=== PATIENT | female | born 1985 | race Caucasian/White ===

== ENCOUNTER → 2016-10-29 | Outpatient (CLI) | payer OTHER | LOC: FIMAGING 19:39 | PROVIDERS: ATTEND Orthopaedic Surgery Foot and Ankle Surgery | DX: M25.562 Pain in left knee (principal); M76.32 Iliotibial band syndrome, left leg; M76.892 Other specified enthesopathies of left lower limb, excluding foot ==

== ENCOUNTER → 2018-02-19 | Outpatient (CLI) | payer OTHER | LOC: FIMAGING 11:35 | PROVIDERS: ATTEND Advanced Practice Midwife | DX: Z34.03 Encounter for supervision of normal first pregnancy, third trimester (principal); Z3A.34 34 weeks gestation of pregnancy ==

== ENCOUNTER 2018-04-01 04:48 | Inpatient (IN) | payer OTHER ==
--- NOTE | 2018-04-01 05:08 | PDGENHP ---
History and Physical History and Physical: Care: [facility] HPI: Patient is a 32yo with IUP@40-4 weeks that presents to L&D with complaints of contractions since 2099. She states they have been getting closer and stronger for the last hour. She reports leaking clear odorless fluid that started around 0400. She denies any VB. She reports +FM. EDC: 03/28/2018 which is based on Ultrasound at 9 weeks. Her is complicated by: S<D (US growth NL) Review of Systems: Constitutional: Denies any fever, chills, or fatigue HEENT: denies any visual changes, difficulty swallowing, hearing loss Cardiovascular: Denies any chest pain, palpitations, leg swelling Respiratory: denies any cough, wheezing, or shortness of breathe GI: Denies any nausea, vomiting, diarrhea, constipation, reports +contractions : denies any dysuria, urgency, frequency, vaginal bleeding Musculoskeletal: denies any muscle or bone pain Skin: denies any rashes Neuro: denies any headache, seizures, lightheadedness, dizziness, or loss of consciousness Psychiatric: denies any depression, anxiety, or SI/HI thoughts HISTORY: Previous OB history: G1 Past medical history: h/o hypercaliurea (kidney stones) Past surgical history: kidney stones removed, oral surgery Social: Denies any alcohol, tobacco, or drug use. - Idris Family history: Not relevant Medications: PNV Allergies (list reaction): NKDA LABS: Rh:A+ ABS: Neg Rubella: Immune HbsAg: NR HIV: NR VDRL: NR 1hr: 79 GC: Neg Chlamydia: Neg Pap: Normal GBS: negative BMI: (prepreg) 21 PHYSICAL EXAM: Constitutional: WN, A&Ox3 HEENT: normocephalic atraumatic, supple Skin: Warm, dry, intact Heart: RRR, no murmur Chest: CTA-B Abdomen: Soft, nontender, gravid SVE:4-5/90/-1 Extremities:no edema, negative homans sign Neuro: grossly normal Psych: normal affect assessment: FHT [id number]+accels, no decels, moderate variability Contractions: toco q 2-5 Assessment: 1) [id number] with IUP@ 40-3wks 2) acitve labor 3) GBS negative 4) Cat 1 FHR tracing Plan: 1) Admit to L&D 2) pain management PRN 3) anticipate Today's visit was approximately 30 min, of which >50% of visit 20min, was spent face to face with pt on direct counseling/coordination of care.
[2018-04-01] MEDS ORDERED: IBUPROFEN 600 MG TAB PO PRN (05:10)
[2018-04-01] MEDS ORDERED: OLIVE OIL 118 ML BTL MISC PRN (05:10)
[2018-04-01] MEDS ORDERED: fentaNYL 100 MCG/2 ML INJ IVP PRN (05:10)
[2018-04-01] MEDS ORDERED: LIDOCAINE 1% 300 MG/30 ML SDV SC PRN (05:10)
[2018-04-01] MEDS ORDERED: EPSOM SALT 454 GM TP PRN (05:10)
[2018-04-01] MEDS ORDERED: AMMONIA AROMATIC 1 EACH AMP IH PRN (05:10)
[2018-04-01] MEDS ORDERED: MISOPROSTOL 200 MCG TAB PO PRN (05:10)
[2018-04-01] MEDS ORDERED: TERBUTALINE SULFATE 1 MG/ML VIAL IV PRN (05:10)
[2018-04-01] MEDS ORDERED: LR 1,000 ML IV PRN (05:10)
[2018-04-01] MEDS ORDERED: OXYTOCIN/RINGERS LACTATE 1,000 ML IV PRN (05:10)
[2018-04-01] MEDS ORDERED: OLIVE OIL 118 ML BTL ONE (05:15)
[2018-04-01] MEDS ORDERED: AMMONIA AROMATIC 1 EACH AMP IH ONE (05:15)
[2018-04-01] MEDS ORDERED: LIDOCAINE 1% 300 MG/30 ML SDV ONE (05:15)
[2018-04-01] MEDS ORDERED: TERBUTALINE SULFATE 1 MG/ML VIAL ONE (05:16)
[2018-04-01] MEDS ORDERED: MISOPROSTOL 200 MCG TAB ONE (05:16)
[2018-04-01] MEDS ORDERED: OXYTOCIN 10 UNIT/ML VIAL ONE (05:16)
[2018-04-01 05:51] LABS: PLATELET COUNT 276 10^3/uL (150-400)
[2018-04-01] MEDS ORDERED: ONDANSETRON 4 MG/2 ML VIAL IVP PRN ×2 (06:59→07:45)
[2018-04-01] MEDS ORDERED: fentaNYL 2MCG/ML/BUP 0.1% RTU 100 ML BAG EP ONE (07:10)
[2018-04-01] MEDS ORDERED: PHENYLEPHRINE HCL 100 MCG/ML SYR ONE (07:11)
[2018-04-01] MEDS ORDERED: BUPIVACAINE 0.25% 10 ML SDV ONE (07:11)
--- NOTE | 2018-04-01 07:15 | PREANESOB ---
Obstetric Pre-Anesthesia Info - General Info Proposed Procedure: JAMAL : 1 Para: 0 DARRELL: 03/28/18 Gestational Age: 40 week(s) and 4 day(s) - Labor Status Cervical Dilation per last OB SVE: 5 Indications for Labor Analgesia: Pain Control Labor Epidural: Proposed Anesthesia Allergies/Adverse Reactions: Allergy/AdvReac Type Severity Reaction Status Date / Time No Known Allergies Allergy Unverified 12/19/09 13:28 Home Medications: Medication Instructions Recorded Chlorthaladone 12/19/09 Potassium Citrate 12/19/09 Visit Medications: Generic Name Dose Route Start Last Admin Trade Name Freq PRN Reason Stop Dose Admin Ammonia (Aromatic Spirit) 1 each 04/01/18 05:10 Ammonia Aromatic IH 04/11/18 05:09 ONCE PRN Fainting Fentanyl 50 mcg 04/01/18 05:10 04/01/18 05:24 Sublimaze IVP 04/11/18 05:09 50 mcg Q2HRS PRN Administration Pain, Severe Unable to Take PO Lactated Ringer's 1,000 mls @ 0 mls/hr 04/01/18 05:10 04/01/18 05:11 Lr IV 04/02/18 05:09 1,000 mls PRN PRN Administration SEE PROTOCOL CONDITIONS Protocol Per Protocol Oxytocin/Lactated Ringer's 1,000 mls @ 999 mls/hr 04/01/18 05:10 Pitocin 20 Units/Lr (Premix) IV PRN PRN Post bleeding Ibuprofen 600 mg 04/01/18 05:10 Motrin PO ONCE PRN post , pain Lidocaine HCl 300 mg 04/01/18 05:10 Lidocaine Hcl 1% SC 09/28/18 05:09 ONCE PRN episiotomy Magnesium Sulfate 454 gm 04/01/18 05:10 Epsom Salt TP 09/28/18 05:09 Q1H PRN perineal discomfort Misoprostol 800 - 1,000 mcg 04/01/18 05:10 Cytotec PO 09/28/18 05:09 ONCE PRN Vaginal Atony/Bleeding [place] Oil 118 ml 04/01/18 05:10 Sweet Oil MISC 09/28/18 05:09 ONCE PRN perineal massage Ondansetron HCl 4 mg 04/01/18 06:59 Zofran IVP 09/28/18 06:58 Q4HRS PRN Nausea/Vomiting, Can't Take PO Terbutaline Sulfate 0.25 mg 04/01/18 05:10 Brethine IV 09/28/18 05:09 ONCE PRN Tachysystole Discontinued Medications Generic Name Dose Route Start Last Admin Trade Name Justin PRN Reason Stop Dose Admin Ammonia (Aromatic Spirit) Confirm 04/01/18 05:15 Ammonia Aromatic Administered 04/01/18 05:16 Dose 1 each IH .STK-MED ONE Bupivacaine HCl Confirm 04/01/18 07:11 Sensorcaine 0.25% Sdv Administered 04/01/18 07:12 Dose 10 ml .ROUTE .STK-MED ONE Fentanyl/Bupivacaine HCl Confirm 04/01/18 07:10 Fentanyl/Bupivacaine/Ns 2 Mcg/Ml 0.1% (Premix Administered 04/01/18 07:11 Dose 100 ml EP .STK-MED ONE Lidocaine HCl Confirm 04/01/18 05:15 Lidocaine Hcl 1% Administered 04/01/18 05:16 Dose 300 mg .ROUTE .STK-MED ONE Misoprostol Confirm 04/01/18 05:16 Cytotec Administered 04/01/18 05:17 Dose 1,000 mcg .ROUTE .STK-MED ONE [place] Oil Confirm 04/01/18 05:15 Sweet Oil Administered 04/01/18 05:16 Dose 118 ml .ROUTE .STK-MED ONE Oxytocin Confirm 04/01/18 05:16 Pitocin Administered 04/01/18 05:17 Dose 40 unit .ROUTE .STK-MED ONE Phenylephrine HCl Confirm 04/01/18 07:11 Neosynephrine Administered 04/01/18 07:12 Dose 1,000 mcg .ROUTE .STK-MED ONE Terbutaline Sulfate Confirm 04/01/18 05:16 Brethine Administered 04/01/18 05:17 Dose 1 mg .ROUTE .STK-MED ONE - Anesthesia History Response to Local Anesthetics: Normal Anesthesia & Operative History: No Prior Problems Family Anesthesia History: Not Applicable - Social History Substance Use/Abuse: Denies - Vital Signs Height/Weight (Nursing): Height 170.18 cm Weight 70.307 kg - Focused Exam Neck exam: FROM Mallampati Score: Class 2 Mouth exam: normal dental/mouth exam Pulmonary: no respiratory distress Cardiovascular: regular rate and rhythym Labs: 04/01/18 05:11 Patient ABO/Rh A POSITIVE 04/01/18 05:11 - Plan Anesthetic Plan: JAMAL Consent Signed and on Chart: Yes Patient/Guardian Understands and Agrees to Plan: Yes
[2018-04-01] MEDS ORDERED: PHENYLEPHRINE HCL 100 MCG/ML SYR IVP PRN (07:45)
[2018-04-01] MEDS ORDERED: NALOXONE HCL 0.4 MG/ML INJ IVP PRN (07:45)
[2018-04-01] MEDS ORDERED: fentaNYL 2MCG/ML/BUP 0.1% RTU 100 ML EP SCH (08:00)
[2018-04-01] MEDS ORDERED: LR 500 ML IV SCH (08:00)
--- NOTE | 2018-04-01 09:33 | OBPROG ---
Labor Progress Note Assessment/Plan: Assessment: Plan: 04/01/18 09:31 Second stage labor Category 1 strip Plan: Labor down for now; recheck in 1 hour or if feeling pressure. Anticipate Subjective/Intrapartum Course: 04/01/18 09:29 Comfortable with epidural in place. Had been feeling pressure but no longer. Was able to sleep for a small amount of time. Objective: 04/01/18 05:11 Patient ABO/Rh A POSITIVE 04/01/18 05:11 - SVE Dilation (cm): 10 Effacement (%): 100 Station: +1 Membranes: SROM Amniotic Fluid Color: Clear Dilation Complete Date: 04/01/18 Dilation Complete Time: 09:20 - Contraction Pattern Assessment Current Contraction Pattern: Regular - FHR Assessment Valdes FHR (bpm): 120 (occasional variable; overeall category 1 strip) FHR Pattern Variability: Moderate FHR Category: 1 - Procedures Non-surgical Procedures: Other (Specify) (fan catheter placed) Oxytocin Orders Assessment - Pre-Induction/Augmentation Assessment Gestational Age: 40 week(s) and 4 day(s) ICD10 Worksheet Patient Problems: Problems Problem Status Onset Acute - ICD10 Problem Qualifiers (1) Qualifiers: Weeks of gestation: 40 weeks Qualified Code(s): Z3A.40 - 40 weeks gestation of
--- NOTE | 2018-04-01 11:48 | OBDEL ---
Info Type: Vaginal Presentation at Delivery: Vertex L&D Analgesia/Anesthesia Type: Epidural GBS+: No Intrapartum Medications: Generic Name Dose Route Start Last Admin Trade Name Freq PRN Reason Stop Dose Admin Fentanyl 50 mcg 04/01/18 05:10 04/01/18 05:24 Sublimaze IVP 04/11/18 05:09 50 mcg Q2HRS PRN Administration Pain, Severe Unable to Take PO Lactated Ringer's 1,000 mls @ 0 mls/hr 04/01/18 05:10 04/01/18 05:11 Lr IV 04/02/18 05:09 1,000 mls PRN PRN Administration SEE PROTOCOL CONDITIONS Protocol Per Protocol - Hospital Course Intrapartum: 04/01/18 09:29 Comfortable with epidural in place. Had been feeling pressure but no longer. Was able to sleep for a small amount of time. Indications for Delivery: Spontaneous Labor, SROM Vaginal Delivery - Delivery Provider Delivery Physician/CNM: Dennise Ayala - Labor and Delivery Onset of Contractions Date: 03/31/18 Onset of Contractions Time: 22:00 Onset of Contractions Type: Spontaneous Rupture of Membranes Date: 04/01/18 Rupture of Membranes Time: 04:00 Rupture of Membranes Type: Spontaneous Amniotic Fluid Color: Clear Dilation Complete Date: 04/01/18 Dilation Complete Time: 09:20 Placenta Delivery Date: 04/01/18 Placenta Delivery Time: 11:13 Total Hours of Labor: 13 Non-surgical Procedures: Other (Specify) (fan catheter placed) Laceration: 2nd Degree (Perineal laceration, 2nd degree repaired in the usual fashion.) Repair: 3-0 Vaginal Sponge Count Correct: Yes Vaginal Needle Count Correct: Yes Vaginal Sweep Performed: Yes Delivery Events: Nuchal Cord Delivery Comment: Nanci began spontaneously pushing. Prolonged decel to the 90's. Changed position to the right side then the left side without recovery. Moved to hands and knees, with immediate recovery back to baseline and no further decels was noted other than early with push. Delivered in hands and knees position. Father helped with . Baby delivered OA to TOMMY position. Immediately brought baby through the patients legs to chest. Assisted mom to low semi fowlers position. - Medications Labor Augmentation/Induction Methods Used: None [place] Data DARRELL: 03/28/18 Gestational Age: 40 week(s) and 4 day(s) ICD10 Worksheet Patient Problems: Problems Problem Status Onset Acute - ICD10 Problem Qualifiers (1) Qualifiers: Weeks of gestation: 40 weeks Qualified Code(s): Z3A.40 - 40 weeks gestation of
[2018-04-01] MEDS ORDERED: HYDROCORTISONE 0.5% CREAM TP PRN (11:54)
[2018-04-01] MEDS ORDERED: SIMETHICONE 80 MG TAB CHEW PO PRN (11:54)
[2018-04-01] MEDS: IBUPROFEN 600 MG TAB PO SCH ×2 (12:23→18:42)
[2018-04-01] MEDS: ACETAMINOPHEN 325 MG TAB PO SCH ×2 (14:38→20:25)
[2018-04-01] MEDS: DOCUSATE SODIUM 100 MG CAP PO PRN (20:25)
[2018-04-02] MEDS: ACETAMINOPHEN 325 MG TAB PO SCH ×4 (02:19→22:32)
[2018-04-02] MEDS: IBUPROFEN 600 MG TAB PO SCH ×4 (02:20→22:31)
[2018-04-02] MEDS: DOCUSATE SODIUM 100 MG CAP PO PRN ×2 (10:04→20:58)
--- NOTE | 2018-04-02 11:49 | OBPP ---
Progress Note Assessment/Plan: Assessment: 32 y/o P1 s/p ppd #1 Plan: routine pp care 04/02/18 12:06 Subjective/ Course: 04/02/18 12:05 Doing well this am. Bleeding wnl, voiding, tolerating activity and reg diet. going fine, pain well controlled with oral pain meds Would like to go home tomorrow Objective: 04/01/18 05:11 Patient ABO/Rh A POSITIVE 04/01/18 05:11 Temp Pulse Resp BP Pulse Ox 36.9 C 65 16 104/67 95 04/02/18 08:00 04/02/18 08:00 04/02/18 08:00 04/02/18 08:00 04/02/18 08:00 Uterine Position/Fundal Height: At Umbilicus Uterine Tone: Firm Physical Exam - Physical Exam EENT: normal ENT inspection Neck: non-tender Respiratory: normal breath sounds Cardiac/Chest: regular rate, rhythm Abdomen: non-tender Extremities: normal range of motion Skin: normal color Neuro/Psych: no motor/sensory deficits, alert, normal mood/affect, oriented x 3
--- NOTE | 2018-04-02 13:54 | POSTANESTH ---
Post Anesthetic Evaluation Cardiovascular Status: Normal, Stable, Similar to Pre-Op Cond Respiratory Status: Normal, Stable, Similar to Pre-op Cond. Level of Consciousness/Mental Status: Can Participate in Eval, Alert and Oriented Pain Control: Adequate, Prn Tx Ordered Nausea/Vomiting Control: Adequate, Prn Tx Ordered Complications Possibly Related to Anesthesia: None Noted Notes: pt seen/examined. Block resolved, no adverse effects. Back site c/d/i, no e/e/ e. Able to ambulate. Denies VERNON/N/V/pruritis.
[2018-04-03] MEDS: ACETAMINOPHEN 325 MG TAB PO SCH ×2 (04:33→16:45)
[2018-04-03] MEDS: IBUPROFEN 600 MG TAB PO SCH ×2 (04:33→16:45)
[2018-04-03] MEDS: DOCUSATE SODIUM 100 MG CAP PO PRN (10:07)
[2018-04-03 12:21] VITALS: BP 112/76
--- NOTE | 2018-04-03 15:09 | OBGCSDC ---
General Delivery Information - General Info : 1 Para: 1 Abortions: 0 Type: Vaginal L&D Analgesia/Anesthesia Type: Epidural, Local Admission Date: 04/01/18 Labs: Patient ABO/Rh A POSITIVE 04/01/18 05:11 Hct 40.7 % (38.0-47.0) 04/01/18 05:11 - Hospital Course Intrapartum: 04/01/18 09:29 Comfortable with epidural in place. Had been feeling pressure but no longer. Was able to sleep for a small amount of time. : 04/02/18 12:05 Doing well this am. Bleeding wnl, voiding, tolerating activity and reg diet. going fine, pain well controlled with oral pain meds Would like to go home tomorrow 04/03/18 15:08 S) Pt doing well, reports min pain and bleeding. she is ambulating and voiding without difficulty. She is . She desires discharge home today. O) VSS, afebrile constitutional: WNF, A&Ox3 HEENT: normocephalic, atraumatic, supple Heart: RRR, No murmur Chest: CTA-B Breasts: soft, nontender, not engorged, nipples intact Abdomen: Soft, nontender Uterus: Firm at U-2 Lochia: Minimal rubra Perineum: Intact, healing well Extremities: Trace edema, and negative Yarely's sign Neuro: Grossly normal A) 32-year-old S/P PPD#2 P) Discharge home today Continue Pelvic rest x6wks Discussed danger signs (infection, preeclampsia, depression, heavy bleeding, etc ) RTO in 2/4/6 weeks Vaginal - Delivery Provider Delivery Physician/CNM: Dennise Ayala - Diagnosis Labor: Spontaneous Rupture of Membranes Type: Spontaneous Amniotic Fluid Color: Clear Laceration: 2nd Degree (Perineal laceration, 2nd degree repaired in the usual fashion.) Repair: 3-0 Delivery Events: Nuchal Cord - Procedures Non-surgical Procedures: Other (Specify) (fan catheter placed) - Delivery Non-surgical Procedures: Other (Specify) (fan catheter placed) Data DARRELL: 03/28/18 Gestational Age: 40 week(s) and 6 day(s) Valdes Delivery Date: 04/01/18 Delivery Time: 11:04 Sex of : Male Weight (gm): 3568 kg Score (1 Min): 7 Score (5 Min): 9 Discharge Information - Discharge Information Prescriptions: Ibuprofen [Motrin (*)] 600 mg PO Q6HRS #30 tab Condition: Good
== END 2018-04-03 16:00 | disposition home or self-care (01) | DRG 807 ==
LOC: FLD 04:48 → OBSVTOIN 04:48 → FOB 13:47
PROVIDERS: ADMIT Advanced Practice Midwife; ATTEND Advanced Practice Midwife
PROC: 10E0XZZ Delivery of Products of Conception, External Approach (ICD-10-PCS; principal; 2018-04-01)
PROC: 0KQM0ZZ Repair Perineum Muscle, Open Approach (ICD-10-PCS; principal; 2018-04-01)
DX: O70.1 Second degree perineal laceration during delivery (principal); Z37.0 Single live birth; Z3A.40 40 weeks gestation of pregnancy; O69.82X0 Labor and delivery complicated by other cord entanglement, without compression, not applicable or unspecified
CPT/HCPCS: J2370; J2590; J3010; J3105